=== PATIENT | male | born 1995 | race Caucasian/White ===

== ENCOUNTER 2021-03-29 23:45 | Emergency (ER) | payer OTHER ==
[~2021-03-29] VITALS: Ht 170.2 cm; Wt 79.4 kg
--- NOTE | 2021-03-29 23:45 | NUR ---
PT BIB [facility], PREB[facility]
[2021-03-29 23:58] VITALS: BP 120/75
--- NOTE | 2021-03-30 01:48 | NUR ---
Dr. Santoyo examining patient.
--- NOTE | 2021-03-30 01:50 | NUR ---
seen by [place] no nursing interventions needed for the patient
[2021-03-30 02:20] VITALS: BP 124/80
--- NOTE | 2021-03-30 02:20 | NUR ---
Patient discharged with v/s stable. Written and verbal after care instructions given and explained. Patient verbalized understanding. Ambulatory with steady gait. ID band removed. All questions addressed prior to discharge. Advised to follow up with PMD.
== END 2021-03-30 02:20 ==
LOC: MED 23:45
DX: R00.0 Tachycardia, unspecified (principal); F10.129 Alcohol abuse with intoxication, unspecified; Z02.89 Encounter for other administrative examinations; V98.8XXA Other specified transport accidents, initial encounter; Y93.89 Activity, other specified; Y92.89 Other specified places as the place of occurrence of the external cause; Y99.8 Other external cause status
CPT/HCPCS: 99282; 99283

== ENCOUNTER 2023-02-13 02:49 | Emergency (ER) | payer OTHER ==
[~2023-02-13] VITALS: Ht 170.2 cm; Wt 79.4 kg
[2023-02-13 03:00] VITALS: BP 139/95; PULSE 106; RESP 17; TEMP 98; O2SAT 96
[2023-02-13 03:05] VITALS: BP 139/95; PULSE 106; RESP 17; TEMP 98; O2SAT 96
--- NOTE | 2023-02-13 03:05 | NUR ---
seen and examined by Horacio
[2023-02-13] MEDS ORDERED: LIDOCAINE MPF 1% 10 MG/ML VIAL INJ ONE (03:40)
--- NOTE | 2023-02-13 04:08 | NUR ---
Patient discharged with v/s stable. Written and verbal after care instructions given and explained. Patient verbalized understanding. Ambulatory with in custody. All questions addressed prior to discharge. Advised to follow up with PMD.
== END 2023-02-13 04:08 ==
LOC: MED 02:49
DX: S01.112A Laceration without foreign body of left eyelid and periocular area, initial encounter (principal); F10.10 Alcohol abuse, uncomplicated; W22.8XXA Striking against or struck by other objects, initial encounter; Y93.89 Activity, other specified; Y92.89 Other specified places as the place of occurrence of the external cause; Y99.8 Other external cause status
CPT/HCPCS: 12011; 99283; J2001